=== PATIENT | female | born 1965 | race African-American/Black ===

== ENCOUNTER 2017-05-17 14:16 | Emergency (ER) | payer OTHER, SELFPAY ==
[2017-05-17] MEDS ORDERED: HYDROcodone/Acetaminophen 10/325 mg Tablet ONE (14:41)
== END 2017-05-17 14:54 | disposition home or self-care (01) ==
LOC: NAV ERS 14:16
DX: M19.041 Primary osteoarthritis, right hand (principal); E78.5 Hyperlipidemia, unspecified; E11.9 Type 2 diabetes mellitus without complications; K21.9 Gastro-esophageal reflux disease without esophagitis; I10 Essential (primary) hypertension; J45.909 Unspecified asthma, uncomplicated; F32.9 Major depressive disorder, single episode, unspecified; F17.210 Nicotine dependence, cigarettes, uncomplicated; Z79.891 Long term (current) use of opiate analgesic; Z79.84 Long term (current) use of oral hypoglycemic drugs; Z79.899 Other long term (current) drug therapy
CPT/HCPCS: 36416; 99283

== ENCOUNTER 2017-07-30 18:27 | Emergency (ER) | payer SELFPAY | END 2017-07-30 19:10 | disposition home or self-care (01) | LOC: NAV ERS 18:27 | DX: B35.4 Tinea corporis (principal); R21 Rash and other nonspecific skin eruption; E78.5 Hyperlipidemia, unspecified; E11.9 Type 2 diabetes mellitus without complications; Z79.84 Long term (current) use of oral hypoglycemic drugs; K21.9 Gastro-esophageal reflux disease without esophagitis; I10 Essential (primary) hypertension; J45.909 Unspecified asthma, uncomplicated; F32.9 Major depressive disorder, single episode, unspecified; F17.210 Nicotine dependence, cigarettes, uncomplicated; Z79.899 Other long term (current) drug therapy | CPT/HCPCS: 99282 ==

== ENCOUNTER 2017-08-31 08:25 | Emergency (ER) | payer SELFPAY ==
[2017-08-31] MEDS ORDERED: Ondansetron ODT 4 MG TAB ONE (08:52)
[2017-08-31 09:17] LABS: #Basophils 0.1 thou/uL (0.0-0.2); #Eosinphils 0.1 thou/uL (0.0-0.7); #Lymphocytes 2.5 thou/uL (1.20-3.40); #Monocytes 0.5 thou/uL (0.11-0.59); %Basophils 1.7 % (0.0-1.0); %Eosinophils 1.7 % (0.0-10.0); %Lymphocytes 30.2 % (21.0-51.0); %Neutrophils 60.5 % (42.0-75.0); Hemoglobin 13.6 g/dL (12.0-16.0); Mean Corpuscular HGB CONC 33.7 g/dL (32.0-36.0); Mean Corpuscular Hemoglobin 28.8 pg (27.0-31.0); Mean Corpuscular Volume 85.4 fl (81.0-99.0); Mean Platelet Volume 8.6 fL (7.4-10.4); Platelet Count 301 thou/uL (130-400); RBC Distribution Width 10.4 % (11.5-14.5); Red Blood Cell (RBC) Count 4.71 mill/uL (4.20-5.40); White Blood Cell (WBC) Count 8.3 thou/uL (4.8-10.8)
[2017-08-31 09:27] LABS: Bilirubin Negative (Negative); Blood, Urine Negative (Negative); Clarity Clear (Clear); Glucose, Urine (Dipstick) 250 mg/dL (Negative); Leukocyte Negative (Negative); Nitrite Negative (Negative); Protein, Urine (Dipstick) Negative (Neg-Trace); Urobilinogen 0.2 mg/dL (0.2-1.0); pH, Urine 6.5 (5.0-9.0)
[2017-08-31 09:33] LABS: CKMB 1.7 ng/mL (0-6.6); Troponin I Less than 0.010 ng/mL (< 0.028)
[2017-08-31 09:34] LABS: ALT (SGPT) 14 U/L (8-55); AST (SGOT) 12 U/L (5-34); Albumin 3.9 g/dL (3.5-5.0); Alkaline Phosphatase 108 U/L (40-150); Anion Gap 15 mmol/L (10-20); BUN (Urea Nitrogen) 24 mg/dL (9.8-20.1); Bilirubin, Total 0.4 mg/dL (0.2-1.2); Calc. Creatinine Clearance 0 mL/min (70-130); Calcium 9.4 mg/dL (7.8-10.44); Carbon Dioxide 25 mmol/L (22-29); Chloride 94 mmol/L (98-107); Estimated GFR-MDRD 64; Globulin 2.4 g/dL (2.4-3.5); Glucose 325 mg/dL (70-105); Potassium 4.1 mmol/L (3.5-5.1); Protein, Total 6.3 g/dL (6.0-8.3); Sodium 130 mmol/L (136-145)
== END 2017-08-31 09:50 | disposition home or self-care (01) ==
LOC: NAV ERS 08:25
DX: R11.2 Nausea with vomiting, unspecified (principal); E11.65 Type 2 diabetes mellitus with hyperglycemia; I10 Essential (primary) hypertension; E78.5 Hyperlipidemia, unspecified; K21.9 Gastro-esophageal reflux disease without esophagitis; J45.909 Unspecified asthma, uncomplicated; F32.9 Major depressive disorder, single episode, unspecified; F17.210 Nicotine dependence, cigarettes, uncomplicated; Z79.84 Long term (current) use of oral hypoglycemic drugs; Z79.899 Other long term (current) drug therapy
CPT/HCPCS: 36416; 80053; 81003; 82553; 84484; 85025; 93005; 36415-59; Q0162

== ENCOUNTER 2017-10-10 09:49 | Emergency (ER) | payer SELFPAY | END 2017-10-10 11:04 | disposition home or self-care (01) | LOC: NAV ERS 09:49 | DX: K02.9 Dental caries, unspecified (principal); E11.9 Type 2 diabetes mellitus without complications; K21.9 Gastro-esophageal reflux disease without esophagitis; E78.5 Hyperlipidemia, unspecified; I10 Essential (primary) hypertension; J45.909 Unspecified asthma, uncomplicated; F32.9 Major depressive disorder, single episode, unspecified; F17.210 Nicotine dependence, cigarettes, uncomplicated; Z79.899 Other long term (current) drug therapy; Z79.84 Long term (current) use of oral hypoglycemic drugs | CPT/HCPCS: 99282 ==

== ENCOUNTER 2018-02-28 16:19 | Emergency (ER) | payer OTHER, SELFPAY ==
[2018-02-28] MEDS ORDERED: Ketorolac Tromethamine 60 MG/2 ML VIAL ONE (16:42)
== END 2018-02-28 17:05 | disposition home or self-care (01) ==
LOC: NAV ERS 16:19
DX: M25.512 Pain in left shoulder (principal); E11.9 Type 2 diabetes mellitus without complications; E78.5 Hyperlipidemia, unspecified; F32.9 Major depressive disorder, single episode, unspecified; K21.9 Gastro-esophageal reflux disease without esophagitis; I10 Essential (primary) hypertension; J45.909 Unspecified asthma, uncomplicated; G56.00 Carpal tunnel syndrome, unspecified upper limb; F17.210 Nicotine dependence, cigarettes, uncomplicated; Z79.84 Long term (current) use of oral hypoglycemic drugs; Z79.899 Other long term (current) drug therapy; X50.0XXA Overexertion from strenuous movement or load, initial encounter; Y93.E2 Activity, laundry; Y99.0 Civilian activity done for income or pay
CPT/HCPCS: 93005; 96372; J1885

== ENCOUNTER 2018-03-07 08:51 | Emergency (ER) | payer SELFPAY ==
[2018-03-07] MEDS ORDERED: Ibuprofen 800 MG TAB ONE (10:04)
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
== END 2018-03-07 10:09 | disposition home or self-care (01) ==
LOC: NAV ERS 08:51
DX: S09.90XA Unspecified injury of head, initial encounter (principal); S13.4XXA Sprain of ligaments of cervical spine, initial encounter; K21.9 Gastro-esophageal reflux disease without esophagitis; E78.5 Hyperlipidemia, unspecified; E11.9 Type 2 diabetes mellitus without complications; I10 Essential (primary) hypertension; J45.909 Unspecified asthma, uncomplicated; F32.9 Major depressive disorder, single episode, unspecified; F17.210 Nicotine dependence, cigarettes, uncomplicated; Z79.84 Long term (current) use of oral hypoglycemic drugs; Z79.891 Long term (current) use of opiate analgesic; Z79.899 Other long term (current) drug therapy; V49.40XA Driver injured in collision with unspecified motor vehicles in traffic accident, initial encounter
CPT/HCPCS: 36416; 70450; 72125

== ENCOUNTER 2018-07-11 12:11 | Outpatient (CLI) | payer OTHER ==
--- NOTE | 2018-07-11 13:45 | RAD ---
RIGHT HAND TWO VIEWS: HISTORY: Disability evaluation. FINDINGS: The carpals are unremarkable. Minimal DJD at the first carpometacarpal. The MCP and IP joints appea r unremarkable with very mild degenerative change noted. IMPRESSION: Mild degenerative changes are noted. POS: [facility]
--- NOTE | 2018-07-11 13:53 | RAD ---
LEFT HAND TWO VIEWS: HISTORY: Disability evaluation. FINDINGS: AP and lateral views of the hand demonstrate some degenerative and osteoarthrosis of the hand and wri st. No acute fracture or dislocation or other acute process. IMPRESSION: Degenerative changes without fracture or dislocation or other acute process. POS: [facility]
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
== END 2018-07-11 12:12 | disposition home or self-care (01) ==
LOC: NAV RAD 12:11
PROVIDERS: ATTEND Family Medicine
DX: Z02.71 Encounter for disability determination (principal); G56.03 Carpal tunnel syndrome, bilateral upper limbs; M19.012 Primary osteoarthritis, left shoulder; M19.042 Primary osteoarthritis, left hand; M19.041 Primary osteoarthritis, right hand

== ENCOUNTER 2019-01-31 03:06 | Emergency (ER) | payer SELFPAY ==
[2019-01-31 03:34] LABS: Clarity Slightly Cloudy (Clear)
[2019-01-31 03:42] LABS: Bacteria/HPF 2+ HPF (None Seen); RBC/HPF None Seen HPF (0-3)
[2019-01-31] MEDS ORDERED: Ketorolac Tromethamine 60 MG/2 ML VIAL ONE (04:46)
[2019-01-31] MEDS ORDERED: cefTRIAXone\\ROCEPHIN 1 GM VIAL ONE (04:49)
[2019-01-31] MEDS ORDERED: Lidocaine 1% (PF) 30 ML VIAL ONE (04:49)
[2019-01-31] MEDS ORDERED: Ondansetron ODT 4 MG TAB ONE (04:50)
== END 2019-01-31 05:20 | disposition home or self-care (01) ==
LOC: NAV ERS 03:06
DX: N39.0 Urinary tract infection, site not specified (principal); G56.03 Carpal tunnel syndrome, bilateral upper limbs; E11.9 Type 2 diabetes mellitus without complications; E78.5 Hyperlipidemia, unspecified; E78.00 Pure hypercholesterolemia, unspecified; F32.9 Major depressive disorder, single episode, unspecified; K21.9 Gastro-esophageal reflux disease without esophagitis; I10 Essential (primary) hypertension; J45.909 Unspecified asthma, uncomplicated; Z79.84 Long term (current) use of oral hypoglycemic drugs; Z79.899 Other long term (current) drug therapy
CPT/HCPCS: 81003; 81015; 87086; 96372; 99284; J0696; J1885; J2001; Q0162

== ENCOUNTER 2020-06-25 10:57 | Emergency (ER) | payer SELFPAY ==
[2020-06-25] MEDS ORDERED: Ondansetron ODT 4 MG TAB ONE (11:30)
[2020-06-25] MEDS ORDERED: Sodium Chloride 0.9% 1,000 ML ONE (11:37)
[2020-06-25] MEDS ORDERED: Insulin Regular 300 UNITS/3 ML VIAL ONE (11:55)
[2020-06-25 12:20] LABS: ALT (SGPT) 16 U/L (8-55); AST (SGOT) 12 U/L (5-34); Albumin 4.2 g/dL (3.5-5.0); Alkaline Phosphatase 177 U/L (40-110); Anion Gap 15 mmol/L (10-20); BUN (Urea Nitrogen) 26 mg/dL (9.8-20.1); Bilirubin, Total 0.5 mg/dL (0.2-1.2); Calc. Creatinine Clearance 0 mL/min (70-130); Calcium 9.5 mg/dL (7.8-10.44); Carbon Dioxide 26 mmol/L (22-29); Chloride 96 mmol/L (98-107); Glucose 509 mg/dL (70-105); Potassium 3.9 mmol/L (3.5-5.1); Protein, Total 7.2 g/dL (6.0-8.3); Sodium 133 mmol/L (136-145)
[2020-06-25 12:24] LABS: Eosinophils 2 % (0-10); Hemoglobin 13.5 g/dL (12.0-16.0); Lymphocytes 29 % (21-51); MDiff Complete? YES; Mean Corpuscular Hemoglobin 29.4 pg (27.0-31.0); Mean Corpuscular Volume 91.9 fL (78.0-98.0); Mean Platelet Volume 8.5 fL (7.4-10.4); Monocytes 8 % (0-10); Neutrophil 61 % (42-75); Platelet Count 287 thou/uL (130-400); Platelet Morphology Comment Appears Adequate; RBC Morphology Normal; Red Blood Cell (RBC) Count 4.59 mill/uL (4.20-5.40); White Blood Cell (WBC) Count 6.6 thou/uL (4.8-10.8)
== END 2020-06-25 12:45 | disposition home or self-care (01) ==
LOC: NAV ERS 10:57
DX: E11.65 Type 2 diabetes mellitus with hyperglycemia (principal); M19.041 Primary osteoarthritis, right hand; K21.9 Gastro-esophageal reflux disease without esophagitis; E78.5 Hyperlipidemia, unspecified; I10 Essential (primary) hypertension; F17.210 Nicotine dependence, cigarettes, uncomplicated; Z79.84 Long term (current) use of oral hypoglycemic drugs; Z79.899 Other long term (current) drug therapy
CPT/HCPCS: 36416; 80053; 85025; 99284; J1815; J7050; Q0162

== ENCOUNTER 2020-06-28 10:13 | Emergency (ER) | payer SELFPAY | END 2020-06-28 10:50 | disposition home or self-care (01) | LOC: NAV ERS 10:13 | DX: E11.65 Type 2 diabetes mellitus with hyperglycemia (principal); E78.5 Hyperlipidemia, unspecified; E78.00 Pure hypercholesterolemia, unspecified; I10 Essential (primary) hypertension; K21.9 Gastro-esophageal reflux disease without esophagitis; J45.909 Unspecified asthma, uncomplicated; F17.210 Nicotine dependence, cigarettes, uncomplicated; Z79.899 Other long term (current) drug therapy; Z79.84 Long term (current) use of oral hypoglycemic drugs | CPT/HCPCS: 36416; 99284 ==

== ENCOUNTER 2021-03-30 14:23 | Emergency (ER) | payer OTHER, SELFPAY | END 2021-03-30 15:05 | disposition home or self-care (01) | LOC: NAV ERS 14:23 | DX: Z20.822 Contact with and (suspected) exposure to COVID-19 (principal); I10 Essential (primary) hypertension; E11.9 Type 2 diabetes mellitus without complications; K21.9 Gastro-esophageal reflux disease without esophagitis; E78.00 Pure hypercholesterolemia, unspecified; E78.5 Hyperlipidemia, unspecified; J45.909 Unspecified asthma, uncomplicated; F17.210 Nicotine dependence, cigarettes, uncomplicated; Z79.84 Long term (current) use of oral hypoglycemic drugs; Z79.899 Other long term (current) drug therapy | CPT/HCPCS: 99283 ==

== ENCOUNTER 2021-07-11 10:34 | Emergency (ER) | payer SELFPAY | END 2021-07-11 12:10 | disposition home or self-care (01) | LOC: NAV ERS 10:34 | DX: M54.50 Low back pain, unspecified (principal); I10 Essential (primary) hypertension; E11.9 Type 2 diabetes mellitus without complications; K21.9 Gastro-esophageal reflux disease without esophagitis; E78.5 Hyperlipidemia, unspecified; E78.00 Pure hypercholesterolemia, unspecified; J45.909 Unspecified asthma, uncomplicated; F17.210 Nicotine dependence, cigarettes, uncomplicated; Z79.84 Long term (current) use of oral hypoglycemic drugs; Z79.899 Other long term (current) drug therapy | CPT/HCPCS: 72100 ==

== ENCOUNTER 2021-08-18 13:28 | Emergency (ER) | payer SELFPAY ==
[~2021-08-18 13:28] MED LIST: Iopamidol 370 76% 100 ML VIAL ONE
[2021-08-18] MEDS ORDERED: Sodium Chloride 0.9% 1,000 ML ONE (14:38)
[2021-08-18] MEDS ORDERED: Morphine 4 MG/ML VIAL ONE (14:39)
[2021-08-18] MEDS ORDERED: Ondansetron PF 4 MG/2 ML Vial ONE ×2 (14:39→16:40)
[2021-08-18 14:40] LABS: #Basophils 0.1 thou/uL (0.0-0.2); #Eosinphils 0.1 thou/uL (0.0-0.7); #Lymphocytes 1.9 thou/uL (1.20-3.40); #Monocytes 0.5 thou/uL (0.11-0.59); #Neutrophils 3.7 thou/uL (1.40-6.50); %Basophils 1.2 % (0.0-1.0); %Eosinophils 1.2 % (0.0-10.0); %Lymphocytes 30.4 % (21.0-51.0); %Monocytes 7.8 % (0.0-10.0); %Neutrophils 59.3 % (42.0-75.0); Hemoglobin 14.1 g/dL (12.0-16.0); Mean Corpuscular HGB CONC 31.4 g/dL (32.0-36.0); Mean Corpuscular Hemoglobin 29.3 pg (27.0-31.0); Mean Corpuscular Volume 93.5 fL (78.0-98.0); Mean Platelet Volume 7.2 fL (7.4-10.4); Platelet Count 350 thou/uL (130-400); RBC Distribution Width 11.5 % (11.5-14.5); Red Blood Cell (RBC) Count 4.81 mill/uL (4.20-5.40); White Blood Cell (WBC) Count 6.2 thou/uL (4.8-10.8)
[2021-08-18 14:58] LABS: ALT (SGPT) 9 U/L (8-55); AST (SGOT) 16 U/L (5-34); Albumin 4.3 g/dL (3.5-5.0); Alkaline Phosphatase 84 U/L (40-110); Anion Gap 22 mmol/L (10-20); BUN (Urea Nitrogen) 26 mg/dL (9.8-20.1); Bilirubin, Total 0.6 mg/dL (0.2-1.2); Calc. Creatinine Clearance 0 mL/min (70-130); Calcium 9.8 mg/dL (7.8-10.44); Carbon Dioxide 22 mmol/L (22-29); Chloride 95 mmol/L (98-107); Glucose 97 mg/dL (70-105); Lipase 33 U/L (8-78); Potassium 3.9 mmol/L (3.5-5.1); Protein, Total 7.3 g/dL (6.0-8.3); Sodium 135 mmol/L (136-145)
== END 2021-08-18 17:25 | disposition short-term general hospital (02) ==
LOC: NAV ERS 13:28
DX: N83.202 Unspecified ovarian cyst, left side (principal); I70.0 Atherosclerosis of aorta; R93.5 Abnormal findings on diagnostic imaging of other abdominal regions, including retroperitoneum; R11.2 Nausea with vomiting, unspecified; E11.9 Type 2 diabetes mellitus without complications; I10 Essential (primary) hypertension; E78.5 Hyperlipidemia, unspecified; E78.00 Pure hypercholesterolemia, unspecified; K21.9 Gastro-esophageal reflux disease without esophagitis; F17.210 Nicotine dependence, cigarettes, uncomplicated; Z79.84 Long term (current) use of oral hypoglycemic drugs; Z79.899 Other long term (current) drug therapy
CPT/HCPCS: 74177; 80053; 83690; 85025; 94760; 96361; 96374; 96375; 96376; J2270; J2405; J7050; Q9967

== ENCOUNTER 2021-10-27 07:45 | Emergency (ER) | payer BC, SELFPAY | END 2021-10-27 09:39 | disposition home or self-care (01) | LOC: NAV ERS 07:45 | DX: M25.512 Pain in left shoulder (principal); E11.9 Type 2 diabetes mellitus without complications; K21.9 Gastro-esophageal reflux disease without esophagitis; E78.5 Hyperlipidemia, unspecified; F17.210 Nicotine dependence, cigarettes, uncomplicated; Z79.84 Long term (current) use of oral hypoglycemic drugs; Z79.899 Other long term (current) drug therapy ==

== ENCOUNTER 2022-07-11 13:38 | Emergency (ER) | payer BC, OTHER, SELFPAY ==
[2022-07-11] MEDS ORDERED: Ipratropium/Albuterol 3 ML NEB ONE (16:52)
== END 2022-07-11 15:22 | disposition home or self-care (01) ==
LOC: NAV ERS 13:38
DX: S92.512A Displaced fracture of proximal phalanx of left lesser toe(s), initial encounter for closed fracture (principal); I25.10 Atherosclerotic heart disease of native coronary artery without angina pectoris; E11.9 Type 2 diabetes mellitus without complications; K21.9 Gastro-esophageal reflux disease without esophagitis; E78.00 Pure hypercholesterolemia, unspecified; I10 Essential (primary) hypertension; F17.210 Nicotine dependence, cigarettes, uncomplicated; Z79.84 Long term (current) use of oral hypoglycemic drugs; Z79.899 Other long term (current) drug therapy; J45.909 Unspecified asthma, uncomplicated; W22.8XXA Striking against or struck by other objects, initial encounter
CPT/HCPCS: J7611; J7620

== ENCOUNTER 2023-04-15 09:17 | Emergency (ER) | payer OTHER | END 2023-04-15 10:02 | disposition home or self-care (01) | LOC: NAV ERS 09:17 | DX: K08.89 Other specified disorders of teeth and supporting structures (principal); E11.9 Type 2 diabetes mellitus without complications; E78.00 Pure hypercholesterolemia, unspecified; I10 Essential (primary) hypertension; F17.210 Nicotine dependence, cigarettes, uncomplicated; J45.909 Unspecified asthma, uncomplicated; Z79.899 Other long term (current) drug therapy | CPT/HCPCS: 99282 ==

== ENCOUNTER 2023-08-13 13:16 | Outpatient (CLI) | payer OTHER | END 2023-08-13 13:17 | disposition home or self-care (01) | LOC: NAV RAD 13:16 | DX: M79.672 Pain in left foot (principal); M54.50 Low back pain, unspecified; R06.02 Shortness of breath; S92.512A Displaced fracture of proximal phalanx of left lesser toe(s), initial encounter for closed fracture; M47.816 Spondylosis without myelopathy or radiculopathy, lumbar region; M43.16 Spondylolisthesis, lumbar region | CPT/HCPCS: 71046; 72100 ==

== ENCOUNTER 2023-09-28 05:20 | Emergency (ER) | payer OTHER ==
[2023-09-28] MEDS ORDERED: Bupivacaine 0.5% 10 ML VIAL ONE (07:02)
[2023-09-28] MEDS ORDERED: Lidocaine 1% (PF) 30 ML VIAL ONE (07:02)
== END 2023-09-28 07:25 | disposition home or self-care (01) ==
LOC: NAV ERS 05:20
DX: K04.4 Acute apical periodontitis of pulpal origin (principal); E11.9 Type 2 diabetes mellitus without complications; I10 Essential (primary) hypertension; F17.210 Nicotine dependence, cigarettes, uncomplicated; E78.00 Pure hypercholesterolemia, unspecified; J45.909 Unspecified asthma, uncomplicated; Z79.899 Other long term (current) drug therapy; Z79.84 Long term (current) use of oral hypoglycemic drugs
CPT/HCPCS: 64400; J2001; J3490

== ENCOUNTER 2023-12-20 19:31 | Emergency (ER) | payer OTHER ==
[~2023-12-20 19:31] MED LIST changes: +EPINEPHrine 1 MG/10 ML Abboject SYRINGE ONE; -Iopamidol 370 76% 100 ML VIAL ONE
== END 2023-12-20 22:25 | disposition expired ==
LOC: NAV ERS 19:31
DX: I46.9 Cardiac arrest, cause unspecified (principal); E11.9 Type 2 diabetes mellitus without complications; I10 Essential (primary) hypertension; F17.210 Nicotine dependence, cigarettes, uncomplicated
CPT/HCPCS: 92950; J0171